=== PATIENT | male | born 2000 | race Caucasian/White ===

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

== ENCOUNTER 2020-03-26 18:18 | Emergency (ER) | payer OTHER, SELFPAY ==
[2020-03-26 18:28] VITALS: BP 120/50; PULSE 89; RESP 17; TEMP 36.8; O2SAT 98; BMI 23.7
--- NOTE | 2020-03-26 18:32 | CT_ITS ---
PROCEDURE: CT ABDOMEN PELVIS W CON CLINICAL INDICATION: abdomen pain, n/v nausea, vomiting, abdominal pain with blood in stools for 2 days. COMPARISON: CT CT ABDOMEN PELVIS W CON from 06/11/2019 TECHNIQUE: IV Contrast: 75ML OPTIRAY 350 Oral Contrast None Axial images obtained with sagittal and coronal reformats. All CT scans at the facility use one or more dose reduction, viz: automated exposure control, ma/kV adjustment per patient size (including targeted exams where dose is matched to indication, i.e. head), or iterative reconstruction technique. FINDINGS: LOWER THORAX: No acute finding ABDOMEN & PELVIS: The liver, spleen, adrenal glands, and pancreas have an unremarkable appearance. The gallbladder is contracted with mildly thickened wall which is nonspecific. No renal or ureteral calculi. No hydronephrosis.. There is scattered mildly prominent lymph nodes within the mesenteries which measure up to 1.5 1 cm which are nonspecific. No evidence of appendicitis. No intestinal obstruction or free air. There are some fluid-filled nondistended loops of small and large bowel in the pelvis which are nonspecific but could be seen with enterocolitis. No acute bony finding. IMPRESSION: 1. Possible enterocolitis. 2. Mildly prominent mesenteric lymph nodes nonspecific but could be seen with mesenteric adenitis. Dictated by: Derick Carvalho MD 03/27/2020 13:01 Derick Carvalho MD in [place] 03/27/2020 13:01
--- NOTE | 2020-03-26 18:37 | HMH.EDGENADL ---
ED Disposition Clinical Impression: Colitis Diarrhea Qualifiers: Diarrhea type: unspecified type Qualified Code(s): R19.7 - Diarrhea, unspecified Disposition: Home, Self-Care Condition on Discharge: Good Instructions: DI for Irritable Bowel Syndrome, DI for Acute Abdomen Additional Instructions: You have been evaluated for abdominal pain, diagnosed with colitis. Please take Bentyl for spasms. Take Zofran for nausea and vomiting. Follow-up with your primary care doctor for colonoscopy. Return to the emergency department if you have any new or worsening symptoms. Prescriptions: Dicyclomine HCl [Bentyl 10mg capsule] 10 mg PO QID PRN #16 cap PRN Reason: Cramping Transmission Status: Received by [facility] Ondansetron [Zofran 4mg ODT] 4 mg PO Q6 PRN #12 tab PRN Reason: Nausea And Vomiting Transmission Status: Received by [facility] Referrals: Virgil Lerma MD [Primary Care Provider] - Time of Disposition: 19:50 - Critical Care Critical Care Time: No Attestation: On 03/26/20, the high probability of a clinically significant, sudden or life threatening deterioration of the following system(s) required my full and direct attention, intervention and personal management. The time I documented below is in addition to time spent performing reported procedures but includes the following listed in this critical care notation. Medical Decision Making - Medical Records Medical records reviewed: Yes: I reviewed the patient's medical records. - Asa Inquiry Pt receiving controlled substance: No Vital Signs: 03/26/20 18:28 Temperature 98.3 F Temperature Source Oral Pulse Rate [Right Radial] 89 Respiratory Rate 17 Blood Pressure [Right Arm] 120/50 L Blood Pressure Mean [Right Arm] 73 02 Sat by Pulse Oximetry 98 Oxygen Delivery Method Room Air - Lab Data Lab Results 03/26/20 18:35: Urine Color Yellow, Urine Appearance Clear, Urine pH 6.0, Ur Specific [place] 1.025, Urine Protein Negative, Urine Glucose (UA) Negative, Urine Ketones Negative, Urine Blood Negative, Urine Nitrate Negative, Urine Bilirubin Negative, Urine Urobilinogen 0.2, Ur Leukocyte Esterase Negative, Urine WBC Occasional, Urine Bacteria 1+ 03/26/20 18:35: WBC 7.2, RBC 5.73, Hgb 18.0, Hct 51.1, MCV 89.2, MCH 31.5 H, MCHC 35.3, RDW 12.5, Plt Count 230, MPV 7.8, Neut % (Auto) 52.6, Lymph % (Auto) 28.4, [place] % (Auto) 15.2 H, Eos % (Auto) 3.0, Baso % (Auto) 0.9, Neut # (Auto) 3.8, Lymph # (Auto) 2.0, [place] # (Auto) 1.1 H, Eos # (Auto) 0.2, Baso # (Auto) 0.1 03/26/20 18:35: Sodium 139, Potassium 3.8, Chloride 100, Carbon Dioxide 29, Anion Gap 13.8, BUN 15, Creatinine 1.00, Estimated Creat Clear 132, Estimated GFR 95, Est GFR ( Amer) 115, Glucose 96, Calcium 9.6, Total Bilirubin 0.7, AST 30, ALT 28, Alkaline Phosphatase 57, Total Protein 8.2, Albumin 4.7, Globulin 3.5 H, Albumin/Globulin Ratio 1.3, Amylase 45, Lipase 45 Result diagrams: 03/26/20 18:35 03/26/20 18:35 Orders (Tests/Meds): ED MEDICATIONS Discontinued Medications Generic Name Dose Route Start Last Admin Trade Name Myles PRN Reason Stop Dose Admin Dicyclomine HCl 20 mg 03/26/20 18:48 03/26/20 18:51 Bentyl 10mg Capsule PO 03/26/20 18:49 20 mg ONCE ONE Administration Ioversol 75 ml 03/26/20 19:44 03/26/20 19:45 Rad-Optiray 350 100ml Vial IV 03/26/20 19:45 75 ml ONCE ONE Administration Protocol Ondansetron HCl 4 mg 03/26/20 18:47 03/26/20 18:51 Zofran 4mg Odt SL 03/26/20 18:48 4 mg ONCE ONE Administration Sodium Chloride 10 ml 03/26/20 19:44 03/26/20 19:45 Rad-Saline Flush 10ml Syringe IV 03/26/20 19:45 10 ml ONCE ONE Administration ORDERS Category Date Time Status CT abdomen pelvis w con Stat Cat Scan 03/26/20 18:32 Taken Stool Culture Stat Micro 03/26/20 18:37 Ordered Medical Decision Narrative: In summary this is a 19-year-old male presenting to the emergency
[2020-03-26 18:41] LABS: Microscopic, Urine URINE MICROSCOPIC (MICROSCOPIC)
[2020-03-26 18:42] LABS: Appearance,Urine CLEAR (Clear); Bilirubin,Urine Negative (Negative); Blood, Urine Negative (Negative); Color,Urine YELLOW (Yellow); Glucose,Urine (UA) Negative (Negative); Ketones,Urine Negative (Negative); Leukocyte Esterase,Urine Negative (Negative); Nitrate,Urine Negative (Negative); Protein,Urine Negative (Negative); Specific Gravity, Urine 1.025 (1.005-1.030); Urobilinogen,Urine 0.2 EU/dl (0.2)
[2020-03-26 18:43] LABS: Basophils # 0.1 K/mm3 (0-0.2); Basophils % 0.9 % (0.1-2.0); Eosinophils # 0.2 K/mm3 (0.0-0.4); Hematocrit 51.1 % (42.0-52.0); Lymphocytes % 28.4 % (10-50); Mean Corpuscular HGB Conc 35.3 g/dL (31.8-35.4); Mean Corpuscular Hemoglobin 31.5 pg (27.0-31.2); Mean Corpuscular Volume 89.2 fl (80-94); Mean Platelet Volume 7.8 fl (7.4-10.4); Monocytes # 1.1 K/mm3 (0.1-1.0); Monocytes % 15.2 % (1.7-9.3); Neutrophils # 3.8 K/mm3 (1.8-7.8); Neutrophils % 52.6 % (37.0-80.0); Platelet Count 230 K/mm3 (142-424); Red Blood Count 5.73 M/mm3 (4.60-6.20); Red Cell Distribution Width 12.5 % (11.5-17.5); White Blood Count 7.2 K/mm3 (4.5-13.0)
[2020-03-26 18:50] LABS: Chloride 100 mmol/L (98-107); Potassium 3.8 mmoL/L (3.5-5.1); Sodium 139 mmol/L (136-145)
[2020-03-26 18:53] LABS: Alanine Aminotransferase 28 U/L (12-78); Alkaline Phosphatase 57 U/L (38-126); Amylase 45 U/L (30-110); Aspartate Amino Transferase 30 U/L (17-59); Bacteria,Urine 1+ /lpf; Bilirubin,Total 0.7 mg/dl (0.2-1.3); Blood Urea Nitrogen 15 mg/dl (9-20); Calcium 9.6 mg/dl (8.4-10.2); Creatinine Clearance Estimated 132 mL/min (50-200); Estimated Glomerular Filt Rate 95 ml/min (>60); GFR (African American) 115 ML/MIN (>60); Glucose 96 mg/dl (74-100); Lipase 45 U/L (23-300); WBC,Urine Occasional #/hpf (0-3)
[2020-03-26 18:54] LABS: Albumin Level 4.7 g/dl (3.5-5.0); Albumin/Globulin Ratio 1.3 (1.1-1.8); Globulin 3.5 g/dL (1.3-3.2); Total Protein,Serum 8.2 g/dl (6.3-8.2)
[2020-03-26 19:35] LABS: Anion Gap 13.8 mEq/L (5-15); Carbon Dioxide 29 mmol/L (22.0-30.0)
--- NOTE | 2020-03-26 20:06 | PC.NURSE ---
results from ct given to dr richardson
[2020-03-26 20:09] VITALS: BP 149/86; PULSE 66; RESP 16; TEMP 36.8; O2SAT 100
== END 2020-03-26 20:14 | disposition home or self-care (01) ==
PROVIDERS: Emergency Provider Emergency Medicine; PCP Family Medicine
DX: K52.9 Noninfective gastroenteritis and colitis, unspecified (principal); J45.909 Unspecified asthma, uncomplicated
CPT/HCPCS: 74177; 80053; 81001; 82150; 83690; 85025; 99283; Q9967

== ENCOUNTER → 2020-03-27 10:33 | Outpatient (CLI) | payer OTHER, SELFPAY ==
[2020-03-27 11:32] LABS: Adenovirus F 40/41, stool Not Detected (NotDetected); Astrovirus Not Detected (NotDetected); Campylobacter Not Detected (NotDetected); Clostridium Difficile A/B, PCR Not Detected (NotDetected); Cyclospora Cayetanesis Not Detected (NotDetected); Entamoeba histolytica Not Detected (NotDetected); Enteropathogenic E coli Not Detected (NotDetected); Enterotoxigenic E coli Not Detected (NotDetected); Giardia lamblia Not Detected (NotDetected); Norovirus Not Detected (NotDetected); Plesimonas Shigalloides, PCR Not Detected (NotDetected); Rotavirus A Not Detected (NotDetected); Salmonella, PCR Not Detected (NotDetected); Sapovirus Not Detected (NotDetected); Shiga-like toxin E coli Not Detected (NotDetected); Shigella Enterovasive E coli Not Detected (NotDetected); Vibrio Cholerae Not Detected (NotDetected); Vibrio, PCR Not Detected (NotDetected); Yersinia Entercolitica, PCR Not Detected (NotDetected)
[2020-03-27 14:04] LABS: Cryptosporidium Detected (NotDetected)
[2020-03-27 14:05] LABS: Enteroaggregative E coli Detected (NotDetected)
== END ==
PROVIDERS: PCP Family Medicine; Visit Provider Emergency Medicine
DX: R19.7 Diarrhea, unspecified (principal); A07.2 Cryptosporidiosis; A04.0 Enteropathogenic Escherichia coli infection
CPT/HCPCS: 87507

== ENCOUNTER 2020-04-14 19:18 | Emergency (ER) | payer OTHER, SELFPAY ==
[2020-04-14 19:26] VITALS: BMI 21.7
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
[2020-04-14 19:28] VITALS: BP 145/90; PULSE 83; RESP 17; TEMP 36.6; O2SAT 97; BMI 21.7
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
[2020-04-14 19:50] VITALS: BP 150/90; PULSE 85; RESP 17; TEMP 36.6; O2SAT 97
[2020-04-14 19:55] VITALS: BP 150/97; PULSE 78; RESP 18; O2SAT 97
== END 2020-04-14 19:59 | disposition home or self-care (01) ==
PROVIDERS: Emergency Provider Emergency Medicine; PCP Family Medicine
DX: S62.352A Nondisplaced fracture of shaft of third metacarpal bone, right hand, initial encounter for closed fracture (principal); W51.XXXA Accidental striking against or bumped into by another person, initial encounter; Y92.89 Other specified places as the place of occurrence of the external cause; J45.909 Unspecified asthma, uncomplicated
CPT/HCPCS: 73110; 73130; 96372; 99283